=== PATIENT | female | born 1995 | race Caucasian/White ===

== ENCOUNTER 2016-04-30 16:08 | Emergency (ER) | payer MEDICAID, OTHER ==
[~2016-04-30] VITALS: Wt 63.5 kg
[~2016-04-30 16:08] MED LIST: MECL25TA2
--- NOTE | 2016-04-30 17:04 | RADRPT ---
PROCEDURE: XR Chest. CLINICAL INDICATION: chest pain, cough TECHNIQUE: Single frontal view of the chest was obtained COMPARISON: None FINDINGS: The heart and mediastinum are within normal limits. The lungs are clear. There is no pleural effusion or pneumothorax. RPTAT: AA IMPRESSION: No acute disease. .Danny Jack MD, MD Date Time Electronically viewed and signed by .Danny Jack MD, on 04/30/2016 17:04 .S/
[2016-04-30] MEDS ORDERED: GUAI120S26 PO (17:39)
[2016-04-30] MEDS ORDERED: ALBU8.5H3 INH (17:39)
--- NOTE | 2016-04-30 18:38 | ERD ---
ER Documentation Chief Complaint Date/Time DATE: 04/30/16 TIME: 18:35 Chief Complaint coughing and chest wall pain with coughing for 3 days. HPI 20-year-old female with no significant past medical history presents the ED complaining of a productive cough that started 1 week ago. Reports that the cough makes her chest slightly hurt. 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 States that sometimes she gets chest pain on the left side of her chest and radiates to the left side of her arm but it is not related to the cough. Denies any fever, chills, abdominal pain, nausea, vomiting, shortness of breath, wheezing. States that her last menses was on April 11, 2015. ROS All systems reviewed and are negative except as per history of present illness. Medications Home Meds Active Scripts Albuterol Sulfate* (Proair HFA*) 8.5 Gm Hfa.aer.ad, 2 PUFF INH Q4, #1 INHALER Prov:CHRIS MOCK PA-C 04/30/16 Dqnopuecjmg-B-Qddgvxanxi Hb* (Guaifenesin* DM Syrup) 120 Ml Syrup, 10 ML PO Q4H Y for COUGH, #120 ML Prov:CHRIS MOCK PA-C 04/30/16 Reported Medications [Unknown] No Conflict Check 01/23/11 Meclizine Hcl* (Antivert*) 25 Mg Tablet 04/27/10 Allergies Allergies: Uncoded Allergies: NONE (Allergy, 06/29/11) PMhx/Soc History of Surgery: Yes (appendectomy 2013) Anesthesia Reaction: No Hx Neurological Disorder: No Hx Respiratory Disorders: No Hx Cardiac Disorders: No Hx Psychiatric Problems: No Hx Miscellaneous Medical Probl: No Hx Alcohol Use: No Hx Substance Use: No (MARIJUANA) Hx Tobacco Use: No Smoking Status: Never smoker Physical Exam Vitals Vital Signs Date Time Temp Pulse Resp B/P Pulse Ox O2 Delivery O2 Flow Rate FiO2 04/30/16 16:10 98.1 79 20 110/64 98 Physical Exam Const: Sss-kfk-mekopiqdc, well-nourished. In no acute distress. Head: Atraumatic, normocephalic Eyes: Normal Conjunctiva without injection. No purulent discharge. PERRL. EOMI ENT: Normal external ear. Ear canal without erythema. Tympanic membrane pearly slade without effusion or bulging. Nasal canal clear with normal turbinates. Moist oropharynx without tonsillar exudates. Non-erythematous pharynx. Uvula midline. No drooling. No trismus. Neck: Full range of motion. No meningismus. No cervical lymphadenopathy. Resp: Clear to auscultation bilaterally. No wheezing, rhonchi, rales, or crackles. No accessory muscle use. No retractions. Cardio: Regular rate and rhythm. No murmurs, rubs or gallops. Abd: Soft, non tender, non distended. Normal bowel sounds. No palpable masses. No rebound tenderness. No guarding. Skin: No petechiae or rashes Back: No midline tenderness. No CVA tenderness. Ext: No cyanosis, or edema. Neur: Awake and alert. Psych: Normal Mood and Affect Procedures/MDM 20-year-old female with no significant past medical history presents the ED complaining of a productive cough that started 1 week ago associated with chest pain. Patient is afebrile and nontoxic-appearing. Patient has normal vital signs. A chest x-ray, EKG was ordered to further evaluate patient. PROCEDURE: XR Chest. CLINICAL INDICATION: chest pain, cough TECHNIQUE: Single frontal view of the chest was obtained COMPARISON: None FINDINGS: The heart and mediastinum are within normal limits. The lungs are clear. There is no pleural effusion or pneumothorax. RPTAT: AA IMPRESSION: No acute disease. EKG reviewed and interpreted by Dr. Meng Rate/Rhythm: [64 bpm, Normal Sinus Rhythm] No ectopy, no ST elevations, normal axis. QRS, ST, T-waves: [No changes consistent w/ acute ischemia] Impression: [No evidence of ischemia or arrhythmia] Low suspicion for acute myocardial infarction, pneumothorax, pneumonia, cardiac tamponade, pulmonary embolism, AAA, aortic dissection, Boerhaave's syndrome, cardiac dysrhythmias,meningitis, intracranial bleed, seizure, stroke, TIA or other emergent conditions. This patient presents to the ED with symptoms consistent with a viral acute upper respiratory infection. Patient is afebrile and has normal vital signs. Patient's physical exam include lungs which were clear to auscultation and a normal pulse oximetry. There is a low suspicion for a croup, pneumonia, pneumothorax, cardiac tamponade, peritonsillar abscess, foreign body aspiration , mastoiditis, retropharyngeal abscess, epiglottitis, meningitis, sepsis or other emergent conditions. Discharge medications: Pro-air, Guaifenesin DM Mother was instructed to bring patient back to the ED for any new or worsening symptoms. They should otherwise follow up with the primary care provider within 1-2 days. The parent's questions were answered at the time of discharge. Parent understood and agreed with discharge management. Departure Diagnosis: Primary Impression: URI (upper respiratory infection) URI type: unspecified URI Qualified Code: J06.9 - Upper respiratory tract infection, unspecified type Condition: Stable Patient Instructions: Uri, Viral, No Abx (Adult) Referrals: [facility] YOU HAVE RECEIVED A MEDICAL SCREENING EXAM AND THE RESULTS INDICATE THAT YOU DO NOT HAVE A CONDITION THAT REQUIRES URGENT TREATMENT IN THE EMERGENCY DEPARTMENT. FURTHER EVALUATION AND TREATMENT OF YOUR CONDITION CAN WAIT UNTIL YOU ARE SEEN IN YOUR DOCTORS OFFICE WITHIN THE NEXT 1-2 DAYS. IT IS YOUR RESPONSIBILITY TO MAKE AN APPOINTMENT FOR FOLOW-UP CARE. IF YOU HAVE A PRIMARY DOCTOR --you should call your primary doctor and schedule an appointment IF YOU DO NOT HAVE A PRIMARY DOCTOR YOU CAN CALL OUR PHYSICIAN REFERRAL HOTLINE AT IF YOU CAN NOT AFFORD TO SEE A PHYSICIAN YOU CAN CHOSE FROM THE FOLLOWING [facility] [address] [facility]. [facility] [address] [facility] [address] [facility] [address] [facility] [address] [facility]. [facility]. [address] [facility]. [facility] YOU HAVE RECEIVED A MEDICAL SCREENING EXAM AND THE RESULTS INDICATE THAT YOU DO NOT HAVE A CONDITION THAT REQUIRES URGENT TREATMENT IN THE EMERGENCY DEPARTMENT. FURTHER EVALUATION AND TREATMENT OF YOUR CONDITION CAN WAIT UNTIL YOU ARE SEEN IN YOUR DOCTORS OFFICE WITHIN THE NEXT 1-2 DAYS. IT IS YOUR RESPONSIBILITY TO MAKE AN APPOINTMENT FOR FOLOW-UP CARE. IF YOU HAVE A PRIMARY DOCTOR --you should call your primary doctor and schedule and appointment IF YOU DO NOT HAVE A PRIMARY DOCTOR YOU CAN CALL OUR PHYSICIAN REFERRAL HOTLINE AT . IF YOU CAN NOT AFFORD TO SEE A PHYSICIAN YOU CAN CHOSE FROM THE FOLLOWING [facility] INSTITUTIONS: [facility] [address] [place] [address] [facility] [address] [place] [address] [facility] [address] [place] [address] [facility] Additional Instructions: FOLLOW UP WITH YOUR PRIMARY CARE PHYSICIAN TOMORROW.Return to this facility if you are not improving as expected. CHRIS MOCK PA-C Apr 30, 2016 18:38
== END 2016-04-30 17:42 | disposition home or self-care (01) ==
LOC: FTE 16:08
DX: J06.9 Acute upper respiratory infection, unspecified (principal)
CPT/HCPCS: 71010; 93005

== ENCOUNTER → 2017-11-25 | Outpatient (CLI) | END | disposition home or self-care (01) ==